=== PATIENT | female | born 1995 | race Caucasian/White ===

== ENCOUNTER 2021-12-09 04:22 | Observation (INO) ==
[2021-12-09] MEDS ORDERED: ONDANSETRON 4 MG/2 ML VIAL IV STA (04:37)
[2021-12-09] MEDS ORDERED: SODIUM CHLORIDE 0.9% 1,000 ML IV STA ×2 (05:00→06:04)
[2021-12-09 05:26] LABS: Basophils % 0.2 % (0.0-0.8); Eosinophils # 0.2 10*3/uL (0.0-0.87); Eosinophils % 2.1 % (0.00-10.9); Hematocrit 37.8 VOL% (35.7-47.0); Hemoglobin 12.6 GM/DL (12.0-16.0); Immature Granulocytes % 0.2 %; Immature Granulocytes Absolute 0.02 #; Lymphocytes # 1.7 10*3/uL (1.4-4.0); Lymphocytes % 20.5 % (21.3-54.2); Mean Corpuscular HGB Conc 33.3 GM/DL (32-36); Mean Corpuscular Volume 93.1 FL (87-102); Mean Platelet Volume 9.9 FL (9.6-12.0); Monocytes % 7.1 % (1.7-12.7); Neutrophils % 69.9 % (38.7-73.9); Platelet Count 276 T/CUMM (130-400); Red Blood Count 4.06 MC/CUMM (3.8-5.5); White Blood Count 8.5 T/CUMM (4-12)
[2021-12-09 05:36] LABS: INR 1.1; PT Patient Result 11.7 SECS (10.5-12.0); Partial Thromboplastin Time 27.9 SECS (23.8-32.1)
[2021-12-09 06:05] LABS: Albumin 3.6 G/DL (3.4-5.0); Bilirubin,Total 0.4 MG/DL (0.20-1.00); Calcium 8.7 MG/DL (8.5-10.1); Osmolality,Calculated 270.8 MOS/KG (273-304); Potassium 3.3 MMOL/L (3.5-5.1); Total Protein 7.3 G/DL (6.4-8.2)
[2021-12-09] MEDS ORDERED: RHO(D) IMMUNE GLOBULIN 300 MCG SYRINGE IM STA (06:58)
[2021-12-09] MEDS ORDERED: OXYTOCIN/LR 20 UNIT/1,000 ML BAG IV ONE (08:22)
[2021-12-09 08:41] LABS: Basophils % 0.2 % (0.0-0.8); Eosinophils # 0.1 10*3/uL (0.0-0.87); Eosinophils % 0.6 % (0.00-10.9); Hematocrit 27.4 VOL% (35.7-47.0); Hemoglobin 8.9 GM/DL (12.0-16.0); Immature Granulocytes % 0.5 %; Immature Granulocytes Absolute 0.04 #; Lymphocytes # 0.9 10*3/uL (1.4-4.0); Lymphocytes % 11.2 % (21.3-54.2); Mean Corpuscular HGB Conc 32.5 GM/DL (32-36); Mean Corpuscular Volume 95.1 FL (87-102); Monocytes % 3.5 % (1.7-12.7); Platelet Count 245 T/CUMM (130-400); Red Blood Count 2.88 MC/CUMM (3.8-5.5); Red Cell Distribution Width 12.1 % (9.3-17.3); White Blood Count 8.4 T/CUMM (4-12)
[2021-12-09] MEDS ORDERED: SODIUM CHLORIDE 0.9% 1,000 ML IV PRN (09:55)
[2021-12-09] MEDS ORDERED: MAGNESIUM HYDROXIDE SUSP 30 ML UDCUP PO PRN (10:28)
[2021-12-09] MEDS ORDERED: ONDANSETRON 4 MG/2 ML VIAL IV PRN (10:28)
[2021-12-09] MEDS ORDERED: BISACODYL 10 MG SUPP RECTAL PRN (10:28)
[2021-12-09] MEDS ORDERED: ACETAMINOPHEN 325 MG TABLET PO PRN (10:28)
[2021-12-09] MEDS ORDERED: LACTATED RINGERS 1,000 ML IV SCH (10:30)
[2021-12-09 12:45] LABS: Hemoglobin 6.8 GM/DL (12.0-16.0)
[2021-12-09] MEDS ORDERED: IBUPROFEN 800 MG TABLET PO STA (19:33)
[2021-12-09] MEDS: DOCUSATE SODIUM 100 MG CAPSULE PO SCH (20:49)
[2021-12-10 02:24] LABS: Basophils % 0.2 % (0.0-0.8); Eosinophils # 0.1 10*3/uL (0.0-0.87); Eosinophils % 1.1 % (0.00-10.9); Hematocrit 24.7 VOL% (35.7-47.0); Immature Granulocytes % 0.4 %; Immature Granulocytes Absolute 0.03 #; Lymphocytes # 2.1 10*3/uL (1.4-4.0); Lymphocytes % 26.2 % (21.3-54.2); Mean Corpuscular HGB Conc 33.6 GM/DL (32-36); Mean Corpuscular Volume 88.2 FL (87-102); Mean Platelet Volume 9.9 FL (9.6-12.0); Monocytes % 5.7 % (1.7-12.7); Neutrophils % 66.4 % (38.7-73.9); Platelet Count 201 T/CUMM (130-400); Red Cell Distribution Width 15.9 % (9.3-17.3); White Blood Count 8.1 T/CUMM (4-12)
[2021-12-10 02:27] LABS: Hemoglobin 8.3 GM/DL (12.0-16.0)
[2021-12-10 08:18] VITALS: BP 91/41
[2021-12-10] MEDS: DOCUSATE SODIUM 100 MG CAPSULE PO SCH (09:38)
== END 2021-12-10 09:40 | disposition home or self-care (01) ==
LOC: N.ED 04:22 → N.EDINP 04:22 → N.OB 12:05
PROVIDERS: ADMIT Obstetrics & Gynecology; ATTEND Obstetrics & Gynecology